=== PATIENT | male | born 2000 | race Caucasian/White ===

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

== ENCOUNTER 2021-03-02 20:54 | Emergency (ER) | payer OTHER ==
[2021-03-02 23:03] VITALS: TEMP 97.7
[2021-03-02] MEDS ORDERED: ACETAMINOPHEN TAB 500 MG TAB PO STA (23:20)
--- NOTE | 2021-03-02 23:42 | XR ---
EXAMINATION TYPE: XR hand complete LT DATE OF EXAM: 03/02/2021 COMPARISON: NONE HISTORY: Fall. Pain. TECHNIQUE: 3 views FINDINGS: IMPRESSION: Negative left hand exam. The thumb appears intact.
--- NOTE | 2021-03-02 23:50 | CT ---
EXAMINATION TYPE: CT facial bones wo con DATE OF EXAM: 03/02/2021 COMPARISON: None HISTORY: Fall CT DLP: 388.40 mGycm Automated exposure control for dose reduction was used. Images obtained from the bottom of the mandible to the top of the frontal sinuses without contrast. Mandibular ring is intact. Temporomandibular joints are intact. Zygomatic arches are intact. Maxilla is intact. Nasal bone is intact. The orbital margins are intact. There is no evidence of orbital blow out fracture. There is no retro-orbital mass. There is fairly normal aeration of the paranasal sinuse s. I see no bony destructive process. There is normal aeration of the mastoid air cells. The skull ba se is intact. IMPRESSION: Negative CT scan of the facial bones.
--- NOTE | 2021-03-02 23:58 | CT ---
EXAMINATION TYPE: CT brain cspine wo con DATE OF EXAM: 03/02/2021 COMPARISON: None HISTORY: Fall CT DLP: 920.10 mGycm Automated exposure control for dose reduction was used. Ventricles and sulci appear normal. There is no mass effect nor midline shift. There is no sign of in tracranial hemorrhage. Calvarium is intact. I see no soft tissue swelling. Cervical vertebra have normal spacing and alignment. Posterior elements are intact. Facet joints are intact. Prevertebral soft tissues are intact. IMPRESSION: Normal CT scan of the brain. Normal CT scan of the cervical spine.
--- NOTE | 2021-03-03 00:22 | ED ---
Fall HPI - General Chief Complaint: Fall Stated Complaint: fall Time Seen by Provider: 03/02/21 23:12 Source: patient Mode of arrival: ambulatory - History of Present Illness Initial Comments: 20-year-old male patient presents to the emergency department today for evaluation of facial injury and left thumb injury after falling from his 1 wheeled hoverboard. Patient states that he tilted forward a little bit too far and fell forward striking his face on the ground. States he somehow injured his left thumb as well. He is unsure if he lost consciousness. He is currently rep orting headache, nasal bone pain, and left thumb pain. Denies numbness or tingling to the extremities. Denies any neck or back pain. Denies any injury to the lower extremities. States he did take ibuprofen prior to arrival. Patient denies any chest pain, shortness of breath, dizziness, weakness, abdominal pain, nausea, vomiting, or difficulties with bowel movements or urination. - Related Data Previous Rx's Medication Instructions Recorded Ibuprofen [Motrin] 600 mg PO Q8HR PRN #30 tab 03/03/21 Allergies Allergy/AdvReac Type Severity Reaction Status Date / Time tetanus and diphtheria Allergy Unknown Verified 03/02/21 23:20 toxoids sea food AdvReac Nausea & Uncoded 09/09/18 09:14 Vomiting Review of Systems ROS Statement: Those systems with pertinent positive or pertinent negative responses have been documented in the HPI. ROS Other: All systems not noted in ROS Statement are negative. Past Medical History Additional Past Medical History / Comment(s): right torn rotator cuff, right hip pain History of Any Multi-Drug Resistant Organisms: None Reported Past Surgical History: No Surgical Hx Reported Past Psychological History: Depression Smoking Status: Former smoker Past Alcohol Use History: Occasional Past Drug Use History: Marijuana General Exam General appearance: alert, in no apparent distress, other (This is a well- developed, well-nourished adult male patient in no acute distress. Vital signs upon presentation temperature 97.7F, pulse 71, respirations 19, blood pressure 135/87, pulse ox 98% on room air.) Head exam: Present: atraumatic, normocephalic, normal inspection Eye exam: Present: normal appearance, PERRL, EOMI. Absent: scleral icterus, conjunctival injection, nystagmus, periorbital swelling, periorbital tenderness ENT exam: Present: normal oropharynx, mucous membranes moist, TM's normal bilaterally, other (There is abrasion noted over the nasal bridge. There is dried blood to the bilateral nostrils. No evidence for septal hematoma.) Neck exam: Present: normal inspection, full ROM, other (Nontender, no step-off, no deformity to firm midline palpation of the posterior cervical spine. Full range of motion without pain or limitation.). Absent: tenderness, meningismus, lymphadenopathy Respiratory exam: Present: normal lung sounds bilaterally. Absent: respiratory distress, wheezes, rales, rhonchi, stridor Cardiovascular Exam: Present: regular rate, normal rhythm, normal heart sounds. Absent: systolic murmur, diastolic murmur, rubs, gallop, clicks GI/Abdominal exam: Present: soft, normal bowel sounds. Absent: distended, tenderness, guarding, rebound, rigid Extremities exam: Present: normal inspection, full ROM, tenderness (Tenderness over the thenar eminence and the left thumb. Skin to the hand is pink, warm, dry. Cap refill less than 3 seconds. Radial pulses 2+ and equal bilaterally. There is no anatomical snuffbox tenderness to the left side. ), normal capillary refill. Absent: pedal edema, joint swelling, calf tenderness Back exam: Present: normal inspection, other (Nontender, no step-off, no deformity to firm midline palpation of the thoracic and lumbar vertebrae. Full range of motion without pain or limitation.). Absent: vertebral tenderness Neurological exam: Present: alert, oriented X3, CN II-XII intact Psychiatric exam: Present: normal affect, normal mood Skin exam: Present: warm, dry, intact, normal color. Absent: rash Course Vital Signs 03/02/21 03/03/21 22:58 00:49 Temperature 97.7 F Pulse Rate 71 69 Respiratory 19 20 Rate Blood Pressure 135/87 125/93 O2 Sat by Pulse 98 100 Oximetry Medical Decision Making - Medical Decision Making 20-year-old male patient presents to the emergency department today for evaluation of facial pain, left thumb pain after a fall from his hover board. Physical examination did reveal facial abrasions, soft tissue swelling over the nasal bridge. Also had dried blood to the bilateral nostrils no evidence for septal hematoma. Is complaining of left thumb pain especially with movement. CT brain and C-spine and facial bones was negative. Left hand x-ray was negative. He was given Tylenol for pain. I did discuss findings and results with him. He will be discharged from the primary care physician for recheck in 1-2 days. Instructed to follow-up with orthopedics of his hand pain is not improved over the next week. Return parameters were discussed in detail. He verbalizes understanding and agrees this plan. Case discussed with my attending Dr. Kirk. - Radiology Data Radiology results: report reviewed, image reviewed 3 views of the left hand are obtained. Report was reviewed in its entirety. Impression by Dr. Rojas shows negative left hand exam. Thumb appears intact. CT facial bones without contrast was obtained. Report was reviewed in its entirety. Impression by Dr. Rojas shows negative computed tomography scan of the facial bones. CT scanning of the brain and C-spine is obtained. Report reviewed in its entirety. Impression by Dr. Rojas shows normal computed tomography scan of the brain, normal computed tomography scan of the cervical spine. Disposition Clinical Impression: Facial abrasion, Concussion, Left thumb sprain Disposition: HOME SELF-CARE Condition: Good Instructions (If sedation given, give patient instructions): Concussion (ED), Finger Sprain (ED), Abrasion (ED) Additional Instructions: Follow-up with her primary care physician for recheck in 1-2 days. Take, Motrin for pain control. Follow-up with orthopedics for further evaluation if pain symptoms persist and 7-10 days. Return for any new, worsening, or concerning symptoms. Prescriptions: Ibuprofen [Motrin] 600 mg PO Q8HR PRN #30 tab PRN Reason: Pain Is patient prescribed a controlled substance at d/c from ED?: No Referrals: None,Stated [Primary Care Provider] - 1-2 days Time of Disposition: 00:22
[2021-03-03 01:03] VITALS: BP 125/93; PULSE 69; RESP 20
== END 2021-03-03 00:49 | disposition home or self-care (01) ==
LOC: EC 20:54
DX: S06.0X9A Concussion with loss of consciousness of unspecified duration, initial encounter (principal); S63.602A Unspecified sprain of left thumb, initial encounter; S00.81XA Abrasion of other part of head, initial encounter; Z87.891 Personal history of nicotine dependence; V00.811A Fall from moving wheelchair (powered), initial encounter
CPT/HCPCS: 70450; 70486; 72125; 99284

== ENCOUNTER → 2024-06-29 | Outpatient (CLI) | payer BC ==
--- NOTE | 2024-06-30 23:39 | MR ---
EXAMINATION TYPE: MR knee RT wo con DATE OF EXAM: 06/29/2024 COMPARISON: Outside right knee x-ray June 25, 2024 HISTORY: Right knee pain, locking, and swelling due to sport injury +2 months ago. TECHNIQUE: Multiplanar, multisequence images of the knee is performed without IV contrast. FINDINGS: MEDIAL MENISCUS: Abnormal signal posterior horn does not definitively extend to articular surface. LATERAL MENISCUS: Anterior and posterior horns are intact without tear. CRUCIATE LIGAMENTS: The anterior and posterior cruciate ligaments are intact and unremarkable. COLLATERAL LIGAMENTS: The medial collateral ligament and lateral collateral ligament complex are inta ct and unremarkable. EXTENSOR MECHANISM: Visualized quadriceps and patellar tendons are intact. EFFUSION: No significant suprapatellar joint effusion. POPLITEAL CYST: No popliteal/méndez cyst. TRICOMPARTMENT SPACES: Tricompartment joint spaces are preserved. No significant spurring. CARTILAGE: Tricompartmental articular cartilage is maintained. BONE MARROW SIGNAL: No focal abnormal marrow signal is appreciated. OTHER: No additional significant abnormality is appreciated. IMPRESSION: 1. At least intrasubstance tear posterior horn medial meniscus, difficult to exclude subtle full-thic kness tear. Otherwise unremarkable study. [facility], , 06/30/2024 11:36 PM
== END | disposition home or self-care (01) ==
LOC: RADMRIMAIN 21:30
PROVIDERS: ATTEND Orthopaedic Surgery
DX: S83.241A Other tear of medial meniscus, current injury, right knee, initial encounter (principal)